=== PATIENT | male | born 1940 | race Asian ===

== ENCOUNTER 2017-04-07 15:19 | Emergency (ER) | payer BC, OTHER ==
[~2017-04-07] VITALS: Ht 154.9 cm; Wt 62.5 kg
[2017-04-07 15:21] VITALS: BP 176/79; PULSE 85; RESP 16; TEMP 97.5; O2SAT 99
[2017-04-07 15:35] VITALS: BP 157/95; PULSE 88; RESP 18; O2SAT 98
--- NOTE | 2017-04-07 15:53 | PD ---
HPI Chief Complaint: Numbness/Tingling Time Seen by Provider: 15:31 Travel History International Travel<30 days: No Contact w/Intl Traveler<30days: No Traveled to known affect area: No History of Present Illness HPI This patient complains of an area of numbness on the left side of his neck. His very small discrete area limited to the left side of his neck. No injury. Duration 5 days. No speech slurring or confusion or headache or muscle weakness or sensory loss. He has chronic paresthesias in his feet from diabetic neuropathy. PFSH Past Medical History Hx Anticoagulant Therapy: No Diabetes: Yes Patient Takes Glucophage: No Diminished Hearing: No Influenza Vaccination: Yes Past Surgical History Abdominal Surgery: Yes (HERNIA) Other Surgery: Yes (HEMORROIDS) Social History Alcohol Use: Yes Tobacco Use: No Allergies-Medications (Allergen,Severity, Reaction): Coded Allergies: Penicillins (Verified Allergy, Severe, 04/07/17) Review of Systems General / Constitutional: No: Fever Eyes: No: Visual changes HENT: No: Headaches Cardiovascular: No: Chest Pain or Discomfort Respiratory: No: Cough Gastrointestinal: No: Abdominal Pain Genitourinary: No: Dysuria Musculoskeletal: No: Pain Skin: No Rash Neurologic: Positive: Paresthesia, Sensory Disturbance, No: Weakness Psychiatric: No: Depression Endocrine: No: Polydipsia Hematologic/Lymphatic: No: Easy Bruising Physical Exam Narrative NEUROLOGICAL: Awake and alert. Pupils are equal round and reactive. Motor exam grossly within normal limits. Five out of 5 muscle strength in all muscle groups. Normal speech. Sensory exam reveals some subjective paresthesias in both feet. He also has relatively symmetric and normal sensation to light and sharp touch in both sides the neck despite his complaint of left-sided neck numbness. GASTROINTESTINAL: Abdomen soft, non-tender, nondistended. Positive bowel sounds. No hepato-splenomegaly, or palpable masses. No guarding. CARDIOVASCULAR: Regular rate and rhythm without murmur. Extremities showed no edema or varicosities. RESPIRATORY: Respiratory effort unlabored, no retractions or use of accessory muscles. Breath sounds are clear and symmetric. SKIN: Focused skin assessment reveals no rash or ulcers. Skin is warm and dry. Palpation shows no induration or nodules. Psych: Normal mood and affect. Normal insight and judgment. Data Data Last Documented VS Vital Signs Date Time Temp Pulse Resp B/P (MAP) Pulse Ox O2 Delivery O2 Flow Rate FiO2 04/07/17 15:35 88 18 157/95 (115) 98 Room Air 04/07/17 15:21 97.5 [place] Medical Decision Making Medical Screen Exam Complete: Yes Emergency Medical Condition: Yes Medical Record Reviewed: Yes Differential Diagnosis Peripheral neuropathy, diabetic neuropathy, CVA Narrative Course I have reviewed the patient's electronic medical record. No objective findings here. Even to sensory testing I don't detect any diminishment I don't think he is having CVA. This more likely is peripheral neuropathy Accu-Chek 137 Stable for outpatient follow-up We discussed signs and symptoms of stroke such as muscle weakness and speech slurring etc. and he will return should he develop any Diagnosis Primary Impression: Peripheral neuropathy Qualified Codes: G60.9 - Hereditary and idiopathic neuropathy, unspecified Additional Impression: Diabetes mellitus Qualified Codes: E11.41 - Type 2 diabetes mellitus with diabetic mononeuropathy Additional Instructions: The patient was advised to follow up with their physician and return if they worsen. Med/Other Pt SpecificInfo: Other Disposition: 01 DISCHARGE HOME Condition: Stable Branden Bejarano MD Apr 07, 2017 15:53
== END 2017-04-07 16:07 | disposition home or self-care (01) ==
LOC: PHED 15:19
DX: E11.42 Type 2 diabetes mellitus with diabetic polyneuropathy (principal); R20.0 Anesthesia of skin; Z88.0 Allergy status to penicillin
CPT/HCPCS: 99282